=== PATIENT | male | born 1945 | race Caucasian/White ===

== ENCOUNTER 2018-03-25 05:22 | Day surgery (SDC) | payer BC ==
[2018-03-25] MEDS ORDERED: Midazolam 1 MG/ML 2 ML SDV IV ONE ×6 (05:23→06:40)
[2018-03-25] MEDS ORDERED: fentaNYL 100 MCG/2 ML SDV IV ONE ×3 (05:23→06:32)
[2018-03-25] MEDS ORDERED: Midazolam 1 MG/ML 2 ML SDV ONE (06:17)
[2018-03-25] MEDS ORDERED: fentaNYL 100 MCG/2 ML SDV ONE (06:17)
[2018-03-25] MEDS ORDERED: Sodium Chloride 0.9% 10 ML Syringe FLUSH PRN (06:48)
[2018-03-25] MEDS ORDERED: Dextrose 5%-0.45% NaCl 1,000 ML IV SCH (07:00)
--- NOTE | 2018-03-25 07:41 | OR ---
DATE: 03/25/2018 PROCEDURES PERFORMED: Total colonoscopy and cold snare polypectomy. INSTRUMENT USED: CF-H180AL Olympus videocolonoscope. PREMEDICATIONS: Fentanyl 100 mcg intravenous and Versed 3.5 mg intravenous. Nasal O2 cannula. The procedure was done under pulse oximetry, BP recording, and black pickler. INDICATION: The patient with previous colonic tubular adenomata. Surveillance colonoscopic examination is done for detection of any polypoid lesions and removal, endoscopic hemostasis therapy if needed. DESCRIPTION OF PROCEDURE: Initial rectal exam was unremarkable. Rigid anoscopy was normal. The colonoscope was passed with ease up to the ileocecal area, photographs were taken of the cecum identified by landmarks of appendiceal orifice and double-bulged ileocecal folds, diminutive cecal polyp was noted, cold snare polypectomy was done, the tissue was retrieved and sent for histopathology. The colon was found to be tortuous and redundant. The bowel preparation was found to be adequate. No bleeding was noted from any of the visualized areas at the commencement of the examination. No stricture. No vascular ectasia. No large isolated ulcerations seen. No evidence of diffuse inflammatory bowel disease in the form of friability, contact bleeding, or ulcerations. Probing the proximal sides of folds and flexures, using adequate distention and clearing of the stool material, withdrawal of the scope was made, cecum to rectum time over 6 minutes. No bleeding was noted from any of the visualized areas at the completion of examination. IMPRESSION: Diminutive cecal polyp. The patient tolerated the procedure well. [facility] /[id number]
== END 2018-03-25 09:02 | disposition home or self-care (01) ==
LOC: DL.ENDO 05:22
PROVIDERS: ATTEND Internal Medicine Gastroenterology
PROC: 0DBH8ZX Excision of Cecum, Via Natural or Artificial Opening Endoscopic, Diagnostic (ICD-10-PCS; principal; 2018-03-25)
DX: Z08 Encounter for follow-up examination after completed treatment for malignant neoplasm (principal); D12.0 Benign neoplasm of cecum; Z86.010 Personal history of colon polyps; Z87.891 Personal history of nicotine dependence; Z88.7 Allergy status to serum and vaccine; Z88.8 Allergy status to other drugs, medicaments and biological substances; E03.9 Hypothyroidism, unspecified; E11.9 Type 2 diabetes mellitus without complications; I10 Essential (primary) hypertension; E78.5 Hyperlipidemia, unspecified; Z80.0 Family history of malignant neoplasm of digestive organs
CPT/HCPCS: 45385; J2250; J3010; J7042

== ENCOUNTER 2021-04-18 05:44 | Day surgery (SDC) | payer MEDICARE, OTHER ==
[2021-04-18] MEDS ORDERED: fentaNYL 100 MCG/2 ML SDV IV ONE ×3 (05:45→07:02)
[2021-04-18] MEDS ORDERED: Midazolam 1 MG/ML 2 ML SDV IV ONE ×3 (05:45→07:03)
[2021-04-18] MEDS ORDERED: Dextrose 5%-0.45% NaCl 1,000 ML IV SCH (06:15)
[2021-04-18] MEDS ORDERED: Midazolam 1 MG/ML 2 ML SDV ONE (06:38)
[2021-04-18] MEDS ORDERED: fentaNYL 100 MCG/2 ML SDV ONE (06:38)
--- NOTE | 2021-04-18 08:14 | OR ---
DATE: 04/18/2021 PROCEDURE: Esophagogastroduodenoscopy, NBI, and multiple pinch biopsies. INSTRUMENT USED: GIF-HQ190 Olympus video panendoscope. PREMEDICATIONS: No oral or topical anesthesia used. Fentanyl 100 mcg intravenous, Versed 2 mg intravenous. Nasal O2 cannula. The procedure was done under pulse oximetry, BP recording, and front desk monitor. INDICATION: The patient with iron-deficiency anemia. Esophagogastroduodenoscopy is performed for detection of any active erosive lesions, Parker esophagus and/or malignancy also under consideration, H pylori status to be determined, small bowel biopsies to be obtained for celiac disease if indicated, endoscopic hemostasis therapy if needed. DESCRIPTION OF PROCEDURE: The scope was passed with ease. Adequate visualization of the esophagus was made from proximal to distal areas. No upper esophageal lesions identified. No distal esophageal stricture. No uphill or downhill esophageal varices. No Yudi-Benitez tear. No evidence of erosive esophagitis by [place] criteria. No esophageal polyp or tumor mass identified. Z-line was seen at around 40 cm distal to the oral verge. No proximal gastric varices noted. Gastric fundus examination by retroflexion showed more than 1 cm sized polyp with_thick stalk, superficial biopsies were obtained and sent for histopathology. Multiple gastric polyps were noted, another 1 cm sized polyp in the antrum noted, NBI views were obtained, photographs were taken, multiple pinch biopsies were obtained and sent for histopathology. No gastric ulcer or vascular ectasia identified. Duodenal bulb showed no ulcer. Visualized second part of the duodenum was unremarkable. Multiple pinch biopsies, 4 in number, were taken from different areas of the second part of the duodenum and tissues were also obtained from the duodenal bulb at 9 and 12 o'clock position and sent for any histopathologic evidence of celiac disease. Multiple pinch biopsies were obtained from the gastric antrum and proximal body and sent for PyloriTek test for H pylori and histopathology. No bleeding was noted from any of the visualized areas at the completion of examination. Photographs were taken of the duodenal bulb, gastric antrum, fundus, and distal esophagus. IMPRESSION: Multiple gastric polyps. The patient tolerated the procedure well. [facility] /[id number] [facility]
== END 2021-04-18 10:10 | disposition home or self-care (01) ==
LOC: DL.ENDO 05:44
PROVIDERS: ATTEND Internal Medicine Gastroenterology
DX: D13.1 Benign neoplasm of stomach (principal); D50.9 Iron deficiency anemia, unspecified; E66.09 Other obesity due to excess calories; E03.9 Hypothyroidism, unspecified; I10 Essential (primary) hypertension; E78.5 Hyperlipidemia, unspecified; E11.9 Type 2 diabetes mellitus without complications; Z88.8 Allergy status to other drugs, medicaments and biological substances; Z88.7 Allergy status to serum and vaccine; Z87.891 Personal history of nicotine dependence; Z68.30 Body mass index [BMI] 30.0-30.9, adult
CPT/HCPCS: 87077; J2250; J3010; J7042